=== PATIENT | female | born 2000 | race Caucasian/White ===

== ENCOUNTER 2021-02-20 19:56 | Emergency (ER) | payer MEDICAID ==
[2021-02-20] MEDS ORDERED: Ibuprofen 100 MG/5 ML UDCUP ONE (22:46)
== END 2021-02-20 22:55 | disposition home or self-care (01) ==
LOC: CSHERS 19:56
DX: H60.502 Unspecified acute noninfective otitis externa, left ear (principal)
CPT/HCPCS: 99282

== ENCOUNTER 2021-03-19 18:24 | Emergency (ER) | payer MEDICAID ==
[2021-03-20 18:18] LABS: SARS-CoV-2 PCR by NAA DETECTED (NotDetected)
== END 2021-03-19 20:06 | disposition home or self-care (01) ==
LOC: CSHERS 18:24
DX: U07.1 COVID-19 (principal); F84.0 Autistic disorder
CPT/HCPCS: 71045; U0003; U0005